=== PATIENT | male | born 2000 | race Caucasian/White ===

== ENCOUNTER 2022-02-24 06:51 | Emergency (ER) | payer SELFPAY ==
[~2022-02-24] VITALS: Ht 180.3 cm; Wt 63.5 kg
--- NOTE | 2022-02-24 06:52 | NUR ---
PT LAZARO MACKENZIE, TO CHAIR
[2022-02-24 07:00] VITALS: BP 141/76
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
--- NOTE | 2022-02-24 07:12 | NUR ---
Patient being evaluated by physician
--- NOTE | 2022-02-24 07:24 | NUR ---
PATIENT BIB [facility]. PATIENT EXAMINED BY DR. LARIOS. PATIENT MEDICALLY CLEARED AND RELEASED IN CUSTODY IN STABLE CONDITION. ORIGINAL PRE-BOOK FORM GIVEN TO OFFICER Eliceo SOW.
== END 2022-02-24 07:24 ==
LOC: MED 06:51 → EDBD 06:51 → MED 07:24
DX: Z02.89 Encounter for other administrative examinations (principal)
CPT/HCPCS: 99283